=== PATIENT | male | born 1980 | race American Indian/Alaskan Native ===

== ENCOUNTER 2021-05-20 20:05 | Emergency (ER) | payer MEDICARE ==
[2021-05-20 21:18] VITALS: BP 144/92
--- NOTE | 2021-05-20 21:33 | Emergency Department Report ---
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 Now with clear yellowish drainage and itchiness primary concern. Patient denies fevers or chills. Patient remains amatory with steady gait. Patient denies history of diabetes. Symptoms are exacerbated by scratching symptoms are relieved by nothing tried. Patient not on antifungal cream - Related Data Previous Rx's Medication Instructions Recorded Last Taken Type Ibuprofen [Motrin 800 MG tab] 800 mg PO Q8HR PRN #30 tablet 05/20/21 Unknown Rx Terbinafine [LamiSIL At 1%] 1 applicatio TP BID 7 Days #1 tube 05/20/21 Unknown Rx cephALEXin [Keflex] 500 mg PO Q8HR 7 Days #21 cap 05/20/21 Unknown Rx ED Review of Systems ROS: Stated complaint: FOOT INFECTION Other details as noted in HPI Constitutional: denies: chills, fever Eyes: denies: eye pain, eye discharge, vision change ENT: denies: ear pain, throat pain Respiratory: denies: cough, shortness of breath, wheezing Cardiovascular: denies: chest pain, palpitations Endocrine: no symptoms reported Gastrointestinal: denies: abdominal pain, nausea, diarrhea Genitourinary: denies: urgency, dysuria Musculoskeletal: denies: back pain, joint swelling, arthralgia Neurological: denies: headache, weakness, paresthesias Psychiatric: denies: anxiety, depression Hematological/Lymphatic: denies: easy bleeding, easy bruising ED Past Medical Hx - Past Medical History Previous Medical History?: Yes - Surgical History Past Surgical History?: No - Medications Home Medications: Home Medications Medication Instructions Recorded Confirmed Last Taken Type Ibuprofen [Motrin 800 MG tab] 800 mg PO Q8HR PRN #30 tablet 05/20/21 Unknown Rx Terbinafine [LamiSIL At 1%] 1 applicatio TP BID 7 Days #1 tube 05/20/21 Unknown Rx cephALEXin [Keflex] 500 mg PO Q8HR 7 Days #21 cap 05/20/21 Unknown Rx ED Physical Exam - General Limitations: No Limitations General appearance: alert, in no apparent distress - Head Head exam: Present: atraumatic, normocephalic - Eye Eye exam: Present: normal appearance, EOMI Pupils: Present: normal accommodation - ENT ENT exam: Present: mucous membranes moist - Neck Neck exam: Present: normal inspection - Respiratory Respiratory exam: Present: normal lung sounds bilaterally. Absent: respiratory distress - Cardiovascular Cardiovascular Exam: Present: regular rate, normal rhythm, normal heart sounds. Absent: systolic murmur, diastolic murmur, rubs, gallop - GI/Abdominal GI/Abdominal exam: Present: soft, normal bowel sounds. Absent: tenderness - Rectal Rectal exam: Present: deferred - Extremities Exam Extremities exam: Present: full ROM - Expanded Lower Extremity Exam Left Foot/Toe exam: Present: tenderness, swelling, erythema (Left dorsal third and fourth digit scant purulent drainage no no ulcer distal pulses intact CLAIM INVESTIGATOR less than 3 seconds mild chafing.) Neuro vascular tendon exam: Absent: pulse deficit, motor deficit, sensory deficit, tendon deficit Gait: Positive: observed and normal - Back Exam Back exam: Present: normal inspection, full ROM. Absent: tenderness - Neurological Exam Neurological exam: Present: alert, oriented X3, CN II-XII intact, normal gait - Psychiatric Psychiatric exam: Present: normal affect, normal mood - Skin Skin exam: Present: warm, dry, erythema (As above.), other (Left dorsal foot erythema purulent drainage to third and fourth digits but no erythema no open wound.) ED Course Vital Signs 05/20/21 21:13 Temperature 98.0 F Pulse Rate 80 Respiratory 18 Rate Blood Pressure 144/92 O2 Sat by Pulse 99 Oximetry ED Medical Decision Making - Medical Decision Making This is cellulitis with athlete's foot. Plan DC to home, Keflex, Lamisil ointment, NSAIDs. Pain, also provided twice daily. Follow-up primary care doctor in 2 to 3 days. Patient communicated understanding of same DC'd home stable condition at this time. Critical care attestation.: If time is entered above; I have spent that time in minutes in the direct care of this critically ill patient, excluding procedure time. ED Disposition Clinical Impression: Athlete's foot on left Cellulitis Qualifiers: Site of cellulitis: extremity Site of cellulitis of extremity: toe Laterality: left Qualified Code(s): L03.032 - Cellulitis of left toe Disposition: HOME / SELF CARE / HOMELESS Is pt being admited?: No Does the pt Need Aspirin: No Condition: Stable Instructions: Cellulitis, Adult, Athlete's Foot, [id number] Additional Instructions: Take medications as prescribed, wash feet with soap and water 2 times a day. Follow-up with your primary care doctor in 2 to 3 days. Return to emergency department if symptoms worsen. Prescriptions: cephALEXin [Keflex] 500 mg PO Q8HR 7 Days #21 cap Terbinafine [LamiSIL At 1%] 1 applicatio TP BID 7 Days #1 tube Ibuprofen [Motrin 800 MG tab] 800 mg PO Q8HR PRN #30 tablet PRN Reason: pain Referrals: CAROLINA DAVIES MD [Staff Physician] - 3-5 Days Forms: Work/School Release Form(ED) Time of Disposition: 21:44
[2021-05-20] MEDS ORDERED: cephALEXin 500 MG CAP PO ONE (23:00)
[2021-05-20] MEDS ORDERED: traMADol 50 MG TAB PO ONE (23:00)
== END 2021-05-20 23:30 | disposition home or self-care (01) ==
LOC: ED 20:05
DX: B35.3 Tinea pedis (principal); L03.032 Cellulitis of left toe; Z98.890 Other specified postprocedural states; Z79.899 Other long term (current) drug therapy
CPT/HCPCS: 99282